=== PATIENT | male | born 1970 | race Caucasian/White ===

== ENCOUNTER 2017-04-25 13:59 | Outpatient (CLI) | payer OTHER ==
--- NOTE | 2017-04-25 16:19 | RAD ---
FOUR VIEWS OF THE RIGHT KNEE: 04/25/17 COMPARISON: None. HISTORY: Acute right knee pain for one month. FINDINGS: The lateral examination demonstrates no knee joint effusion. There is no displaced fracture or eviden ce of dislocation IMPRESSION: No acute osseous abnormality. POS: [facility]
== END 2017-04-25 14:00 | disposition home or self-care (01) ==
LOC: SCSRAD 13:59
PROVIDERS: ATTEND Family Medicine
DX: M25.561 Pain in right knee (principal)

== ENCOUNTER 2019-08-19 17:30 | Outpatient (CLI) | payer OTHER | END 2019-08-19 17:31 | disposition home or self-care (01) | LOC: SLEEPLAB 17:30 | PROVIDERS: ATTEND Family Medicine | DX: G47.33 Obstructive sleep apnea (adult) (pediatric) (principal); R53.83 Other fatigue; G47.00 Insomnia, unspecified; R06.83 Snoring; G47.10 Hypersomnia, unspecified; G47.31 Primary central sleep apnea | CPT/HCPCS: 95806 ==

== ENCOUNTER 2023-04-05 16:00 | Outpatient (CLI) | payer BC | END 2023-04-05 16:01 | disposition home or self-care (01) | LOC: SLEEPLAB 16:00 | PROVIDERS: ATTEND Family Medicine | DX: G47.33 Obstructive sleep apnea (adult) (pediatric) (principal); G47.31 Primary central sleep apnea; G47.61 Periodic limb movement disorder | CPT/HCPCS: 95810 ==